=== PATIENT | female | born 1990 | race African-American/Black ===

== ENCOUNTER 2017-07-14 09:25 | Emergency (ER) | payer BC, MEDICAID ==
[~2017-07-14] VITALS: Ht 162.6 cm; Wt 52.6 kg
[2017-07-14] MEDS ORDERED: OMEP20TA20 PO (09:53)
[2017-07-14] MEDS ORDERED: PANTOPRAZOLE SODIUM 40 MG TABLET.DR PO ONE ×2 (10:30→10:51)
[2017-07-14] MEDS ORDERED: MAG HYDROX/AL HYDROX/SIMETH 30 ML LIQUID UDC PO ONE (10:30)
[2017-07-14 10:42] LABS: BASOPHILS % (AUTO) 0.8 % (0.0-2.0); EOSINOPHILS % (AUTO) 0.8 % (0.0-7.0); HEMATOCRIT 43.1 % (31.2-41.9); HEMOGLOBIN 14.5 g/dL (10.9-14.3); LYMPHOCYTES # (AUTO) 1.7 K/uL (20.0-40.0); LYMPHOCYTES % (AUTO) 38.4 % (20.5-51.5); MEAN CORPUSCULAR HEMOGLOBIN 30.4 uug (24.7-32.8); MEAN CORPUSCULAR HGB CONC 34 g/dL (32.3-35.6); MEAN CORPUSCULAR VOLUME 90.6 fL (75.5-95.3); MONOCYTES # (AUTO) 0.3 K/uL (2.0-10.0); MONOCYTES % (AUTO) 7.5 % (0.0-11.0); NEUTROPHILS # (AUTO) 2.3 K/uL (1.8-8.9); NEUTROPHILS % (AUTO) 52.5 % (38.5-71.5); PLATELET COUNT (AUTO) 245 K/uL (179-408); RED BLOOD CELL COUNT(AUTO) 4.76 MIL/uL (3.63-4.92); WHITE BLOOD COUNT (AUTO) 4.3 K/uL (3.8-11.8)
[2017-07-14] MEDS ORDERED: MAG HYDROX/AL HYDROX/SIMETH 30 ML LIQUID UDC ONE (10:50)
[2017-07-14 10:58] LABS: CREATININE 0.8 mg/dL (0.6-1.3); POTASSIUM 3.9 mmol/L (3.5-5.1)
[2017-07-14 11:04] LABS: BILIRUBIN,DIRECT 0.1 mg/dL (0.0-0.2); BILIRUBIN,TOTAL 0.4 mg/dL (0.2-1.0); TOTAL PROTEIN, SERUM 7.8 g/dL (6.4-8.2)
[2017-07-14] MEDS ORDERED: ONDANSETRON ODT 4 MG TAB.RAPDIS SL ONE (13:15)
--- NOTE | 2017-07-14 13:22 | NUR ---
mse completed, meds administered. pt then d/c'd home, aci/rx x2 given. pt got dressed and ambulated w/o diff/took all belonings.
[2017-07-14 13:25] VITALS: BP 102/68
[2017-07-14] MEDS ORDERED: ONDANSETRON ODT 4 MG TAB.RAPDIS ONE (13:34)
== END 2017-07-14 13:20 | disposition home or self-care (01) ==
LOC: ER 09:25
DX: K21.9 Gastro-esophageal reflux disease without esophagitis (principal); Z88.0 Allergy status to penicillin
CPT/HCPCS: 36415; 70030-TC; 70450; 71010; 84703; 85025; 93005; A4663; Q0162

== ENCOUNTER 2017-08-15 20:14 | Emergency (ER) | payer BC ==
[~2017-08-15] VITALS: Ht 162.6 cm; Wt 52.6 kg
[~2017-08-15 20:14] MED LIST: OMEP20TA20 PO
[2017-08-15] MEDS ORDERED: IV NORMAL SALINE 1000 ML BAG IV ONE ×2 (21:45)
[2017-08-15] MEDS ORDERED: METOCLOPRAMIDE HCL 10 MG/2 ML VIAL IV ONE (21:45)
[2017-08-15] MEDS ORDERED: diphenhydrAMINE 50 MG/1 ML VIAL IV ONE (21:45)
--- NOTE | 2017-08-15 22:20 | NUR ---
pt AAOx4 , pt has c/o KELLEY, back pain,BLE pain x1 day. VSS. able to make needs known. able to speak in complete sentences. no facial droop or unilateral weakness noted. respirations even and unlabored. no cardiovascular distress. bed in low position, call light within reach.
[2017-08-15 22:24] LABS: BILIRUBIN,TOTAL 0.5 mg/dL (0.2-1.0); CREATININE 0.8 mg/dL (0.6-1.3); POTASSIUM 3.5 mmol/L (3.5-5.1); TOTAL PROTEIN, SERUM 7.3 g/dL (6.4-8.2)
[2017-08-15] MEDS ORDERED: diphenhydrAMINE 50 MG/1 ML VIAL ONE (22:24)
[2017-08-15] MEDS ORDERED: METOCLOPRAMIDE HCL 10 MG/2 ML VIAL ONE (22:25)
[2017-08-15 22:30] LABS: BASOPHILS % (AUTO) 0.2 % (0.0-2.0); EOSINOPHILS % (AUTO) 0.1 % (0.0-7.0); HEMATOCRIT 38.5 % (31.2-41.9); HEMOGLOBIN 13.1 g/dL (10.9-14.3); LYMPHOCYTES # (AUTO) 0.8 K/uL (20.0-40.0); LYMPHOCYTES % (AUTO) 6.6 % (20.5-51.5); MEAN CORPUSCULAR HEMOGLOBIN 30.6 uug (24.7-32.8); MEAN CORPUSCULAR HGB CONC 34 g/dL (32.3-35.6); MEAN CORPUSCULAR VOLUME 90.2 fL (75.5-95.3); MONOCYTES # (AUTO) 0.9 K/uL (2.0-10.0); MONOCYTES % (AUTO) 6.7 % (0.0-11.0); NEUTROPHILS % (AUTO) 86.4 % (38.5-71.5); PLATELET COUNT (AUTO) 200 K/uL (179-408); RED BLOOD CELL COUNT(AUTO) 4.27 MIL/uL (3.63-4.92); WHITE BLOOD COUNT (AUTO) 12.8 K/uL (3.8-11.8)
--- NOTE | 2017-08-15 23:21 | NUR ---
Patient is resting comfortably in bed with eyes closed. father at bedside
--- NOTE | 2017-08-15 23:43 | NUR ---
PATIENT IN BED, NO ACUTE DISTRESS NOTED.
--- NOTE | 2017-08-16 00:13 | NUR ---
pt ambulated with stable gait, orthostatics negative. ER informed
[2017-08-16 00:16] LABS: BILIRUBIN,DIRECT 0.1 mg/dL (0.0-0.2)
--- NOTE | 2017-08-16 00:54 | NUR ---
PATIENT IN BED, NO ACUTE DISTRESS NOTED. VISITOR AT BEDSIDE. ALL PATIENT NEEDS ATTENDED AND MET.
--- NOTE | 2017-08-16 02:19 | NUR ---
Patient discharged to home in stable conditon. Written and verbal after care instructions given. Patient verbalizes understanding of instructions. PERIPHERAL IV REMOVED PRIOR TO DC. AMBULATED FROM ER WITH STABLE GAIT. ALL BELONGINGS WITH PATIENT.
[2017-08-16 02:21] VITALS: BP 116/78
== END 2017-08-16 02:24 | disposition home or self-care (01) ==
LOC: ER 20:15
DX: G43.909 Migraine, unspecified, not intractable, without status migrainosus (principal); R53.1 Weakness; K21.9 Gastro-esophageal reflux disease without esophagitis; Z88.0 Allergy status to penicillin
CPT/HCPCS: 36415; 70450; 84703; 85025; A4663; J1200; J2765; J7030